=== PATIENT | female | born 1950 | race Caucasian/White ===

== ENCOUNTER 2025-03-30 13:47 | Emergency (ER) | payer OTHER, MEDICARE ==
[2025-03-30 13:53] VITALS: BP 143/56; PULSE 85; RESP 18; TEMP 98.3; BMI 24.5
== END 2025-03-30 17:15 | disposition home or self-care (01) ==
LOC: FER 13:47
DX: S63.92XA Sprain of unspecified part of left wrist and hand, initial encounter (principal); W10.8XXA Fall (on) (from) other stairs and steps, initial encounter
CPT/HCPCS: 73110-TC-LT-FY; 73130-TC-LT-FY; 99283-25